=== PATIENT | male | born 1965 | race Caucasian/White ===

== ENCOUNTER 2021-12-13 10:01 | Inpatient (IN) | payer BC ==
[~2021-12-13] VITALS: Ht 177.8 cm; Wt 95.7 kg
[2021-12-13 10:05] VITALS: BP_SYST 126
--- NOTE | 2021-12-13 10:10 | NUR ---
BROUGHT IN BY S AMBULANCE, PLACED IN BED #7 AND TRIAGED. REPORT GIVEN TO AIDAN
--- NOTE | 2021-12-13 10:22 | NUR ---
PT BIBA, SLEEPING AND SNORING. NO SOB OR DISTRESS. PT IS NON VERBAL. PT BROUGHT IN TO ER FOR DISLODGED G-TUBE FROM HIS [facility]. PT DOES NOT SEEM TO BE IN PAIN. PT HAS HX OF CVA, AND NON VERBAL.
--- NOTE | 2021-12-13 10:26 | NUR ---
MD DR CUADRA AT BEDSIDE
--- NOTE | 2021-12-13 11:10 | NUR ---
ATTEMPTED X4 TO CALL [facility] FOR CLARIFICATION ON MED REC, MED REC ONLY PARTIALLY PRINTED. UNABLE TO GET THROUGH TO PHONE NUMBER [phone]
--- NOTE | 2021-12-13 11:26 | NUR ---
PT IN BED SLEEPING AND SNORING, NO DISCOMFORT. PT BPM IS BARRY AT 48 BPM. MD AWARE.
[2021-12-13 11:42] LABS: BASOPHILS % (AUTO) 0.5 % (0.0-2.0); EOSINOPHILS # (AUTO) 0.1 K/uL (0.0-0.4); EOSINOPHILS % (AUTO) 1.2 % (0.0-4.0); HEMATOCRIT 44.3 % (36-54); LYMPHOCYTES # (AUTO) 2.3 K/uL (1.0-5.5); LYMPHOCYTES % (AUTO) 25.6 % (20.5-51.5); MEAN CORPUSCULAR HEMOGLOBIN 33 pg (27-31); MEAN CORPUSCULAR HGB CONC 34 % (32-36); MEAN CORPUSCULAR VOLUME 98 fL (79.0-98.0); MONOCYTES # (AUTO) 0.8 K/uL (0.0-1.0); MONOCYTES % (AUTO) 9.3 % (1.7-9.3); NEUTROPHILS # (AUTO) 5.7 K/uL (1.8-7.7); NEUTROPHILS % (AUTO) 63.4 % (40.0-70.0); PLATELET COUNT (AUTO) 235 K/uL (130-430); RED BLOOD CELL COUNT(AUTO) 4.53 MIL/uL (4.2-6.2); RED CELL DISTRIBUTION WIDTH 13.8 % (9.0-15.0)
[2021-12-13 11:55] LABS: CALCIUM 9.3 mg/dL (8.4-11.0); CREATININE 0.79 mg/dL (0.55-1.30)
[2021-12-13 11:58] LABS: INR 1.1 (0.80-1.20); PROTHROMBIN TIME 11.3 SECS (9.5-12.5)
[2021-12-13 12:02] LABS: ALBUMIN 2.8 g/dL (3.4-4.8); C-REACTIVE PROTEIN QUANT 1.3 mg/dL (0-0.5); TOTAL BILIRUBIN 0.8 mg/dL (0.0-1.0)
--- NOTE | 2021-12-13 12:46 | NUR ---
Covid test sent to the lab
--- NOTE | 2021-12-13 13:39 | NUR ---
MARIE PURDY, PT PCP, HAS NOT PAGED BACK WITHIN [address] CUADRA, PAGE STUDENT NURSE HOSPITALIST FOR ADMISSION DUE TO DELAY OF CARE. PER FACESHEET: [facility] ppo-ppo DR. MONDRAGON IS STUDENT NURSE [phone]
--- NOTE | 2021-12-13 13:46 | NUR ---
Admit bed requested Patient will be admitted to care of . Admitted to M/S unit. Diagnosis G-TUBE MALFUNCTION Inpatient (Yes or No) YES Observation (Yes or No) NO Orientation concerns or request close to nursing station (Yes or No) NO Covid Status NEG On vent or bipap NO Isolation requirements NO Needs a sitter NO From Home (Yes or if No enter name of facility) NO-[facility] Requires Dialysis (Yes or No) NO Med Rec Completed (Yes of No) YES
[2021-12-13] MEDS ORDERED: ONDANSETRON HCL 4 MG/2 ML VIAL IVP PRN (14:15)
[2021-12-13] MEDS ORDERED: MUPIROCIN 2% TOPICAL OINTMENT 22 GM NS PRN (14:15)
[2021-12-13] MEDS ORDERED: DOCUSATE SODIUM 100 MG CAPSULE PO PRN (14:15)
[2021-12-13] MEDS ORDERED: MAGNESIUM SULFATE 50 ML IV PRN (14:15)
[2021-12-13] MEDS ORDERED: NALOXONE HCL 0.4 MG/ML AMP (NARCAN) IVP PRN ×2 (14:15)
[2021-12-13] MEDS ORDERED: ZOLPIDEM TARTRATE 5 MG TABLET PO PRN (14:15)
[2021-12-13] MEDS ORDERED: MORPHINE 2 MG/ML INJ. SYRINGE IVP PRN ×2 (14:15)
[2021-12-13] MEDS ORDERED: LORazepam 2 MG/ML VIAL IVP PRN (14:15)
[2021-12-13] MEDS ORDERED: ACETAMINOPHEN 325 MG TABLET PO PRN (14:15)
[2021-12-13] MEDS ORDERED: POTASSIUM CHLORIDE 20 MEQ TAB.PRT.SR PO PRN (14:15)
--- NOTE | 2021-12-13 15:45 | NUR ---
CONSULTATION PAGED/CALLED Reason for Consultation: [] GTUBE MALFUNCTION Person Who was Notified: [] KUSUM Consulting Physician: [] DR WARE Processing Inspector Specialty: [] GI Ordering Physician: [] DR MONDRAGON
--- NOTE | 2021-12-13 15:52 | NUR ---
Patient will be admitted to care of DR MONDRAGON . Admitted to MED SURGE unit. Will go to room 102B. Belongings list completed. Complete and up to date summary report printed. SBAR report to be given at bedside with opportunity for questions.
[2021-12-13 15:54] VITALS: BP_SYST 138
--- NOTE | 2021-12-13 15:58 | NUR ---
ADMISSION NOTES RECEIVED PT FROM [facility]. , PT WILL BE UNDER THE CARE OF DR MONDRAGON, PT DX IS MALFUNCTIONING G-TUBE. PT G-TUBE WAS OUT ALREADY AND INSERTION SITE HAS CLOSED ALREADY. DR WARE MADE AWARE . PT IS NON -VERBAL , DOES NOT OPEN EYES. DOES NOT FOLLOW VERBAL COMMANDS, REACTIVE TO PAIN ONLY.
--- NOTE | 2021-12-13 17:42 | NUR ---
[facility] ATTEMPTED TO CALL [facility] TO GET MEDICATION LIST FOR RECONCILIATION. WE HAVE ONLY RECEIVED A PARTIAL LIST WITHOUT FREQUENCY. PHONE CONTINUES TO BE BUSY.
[2021-12-13] MEDS: D5NS 500 ML IV SCH ×2 (18:00→20:00)
--- NOTE | 2021-12-13 18:35 | NUR ---
family note spoke with patients , updated on status, answered all questions, verbalized understanding. Stated she will becoming to visit him soon
--- NOTE | 2021-12-13 19:20 | NUR ---
CLOSING PROVIDED SBAR TO NIGHT NURSE, PATIENT IS IN BED WITH EYES CLOSE, RESPIRATIONS ARE EVEN , WITH 2L NASAL CANNULA, BED IN LOW AND LOCK ALAM BED ON, CALL LIGHT FIONA REACH Addendum: 12/13/21 at 1926 by Micaela Medina RN ENDORSE MRSA SCREENING TO NIGHT NURSE
[2021-12-13 20:50] VITALS: BP_SYST 138
--- NOTE | 2021-12-13 20:50 | NUR ---
Opening notes Pt's eyes open, non-verbal and does not follow commands. VSS. Pt's stepdaughter at bedside. IVF infusing L.AC 20G clear and patent. GT site closed, no redness, bleeding or drainage noted. Pt NPO, awaiting GI consult for GT placement. Call light within reach. BEd low, locked, siderails up x3, alarm on. To monitor.
--- NOTE | 2021-12-13 22:10 | NUR ---
MRSA nares collected and sent to lab.
[2021-12-13] MEDS ORDERED: BISA-79 PR (23:01)
[2021-12-13] MEDS ORDERED: ACET325T53 GT (23:01)
[2021-12-13] MEDS ORDERED: POLY17PO4 GT (23:01)
[2021-12-13] MEDS ORDERED: ESOM20CA38 GT (23:01)
[2021-12-13] MEDS ORDERED: LACT-96 GT (23:01)
[2021-12-13] MEDS ORDERED: SENN8.6T19 GT (23:01)
[2021-12-13] MEDS ORDERED: TICA90TA GT (23:01)
[2021-12-13] MEDS ORDERED: MOM GT (23:01)
[2021-12-13] MEDS ORDERED: DOCU-144 GT (23:01)
[2021-12-13] MEDS ORDERED: LOVI40 SQ (23:01)
[2021-12-14 00:47] VITALS: BP_SYST 110
[2021-12-14] MEDS: D5NS 500 ML IV SCH (02:15)
[2021-12-14] MEDS: D5NS 1,000 ML IV SCH (05:54)
--- NOTE | 2021-12-14 06:10 | NUR ---
Closing notes Pt asleep, no s/s distresss. IVF infusing at ordered rate L.AC 20G clear and patent. Pt maintained NPO, awaiting GI consult for GT placement. Call light within reach. Bed low, locked, siderails up x3, alarm on. To endorse to AM nurse. Addendum: 12/14/21 at 0705 by Yeni Rodríguez RN Called [facility] [phone] for medication recon (frequency), busy signal.
[2021-12-14] MEDS ORDERED: ATROPINE SULFATE 1 MG/10 ML SYRINGE IVP ONE ×2 (07:00→13:32)
[2021-12-14 08:00] VITALS: BP_SYST 117
[2021-12-14 11:20] VITALS: BP_SYST 113
[2021-12-14] MEDS ORDERED: MEPERIDINE 100 MG INJ. 100 MG/ML VIAL ONE (12:25)
[2021-12-14] MEDS ORDERED: MIDAZOLAM HCL 5 MG/5 ML VIAL ONE (12:26)
[2021-12-14 15:00] VITALS: BP_SYST 130
--- NOTE | 2021-12-14 15:46 | NUR ---
Discharge Planning: [facility] faxed pt referral to [facility] [phone] DCP to follow up Addendum: 12/14/21 at 1608 by Felicity Cuenca DP Patient can go back to [facility] [phone] [id number] pending auth from insurance. If auth comes DCP made Wendy aware to call nurse station [phone], transport is on Will Call with [facility] [phone] BLS. Addendum: 12/14/21 at 1611 by Felicity Cuenca DP Patient packet taken to nurse station.
--- NOTE | 2021-12-14 16:00 | NUR ---
REPORT RECEIVED FROM AUREA MARY. PT NON VERBAL, INCONTINENT OF BLADDER, ON IVF D5NS AT 80 ML PER HR, GTUBE CLAMPED WITH ABDOMINAL BINDER IN PLACE.
[2021-12-14 19:30] VITALS: BP_SYST 132
--- NOTE | 2021-12-14 19:30 | NUR ---
INITIAL NOTE AT INITIAL ASSESSMENT, PATIENT IS RESTING IN BED, STABLE, NO SIGNS OF RESPIRATORY DISTRESS. HE IS NONVERBAL AND WITHDRAWN. PLAN OF CARE FOR THE EVENING IS COMMUNICATED WITH THE PATIENT. PATIENT SHOWS NO PAIN PER FLACC SCALE USED. ABDOMINAL BINDER IS ON OVER HIS GTUBE, BLANKETS ARE POSITIONED SO THAT PATIENT CANNOT ACCIDENTALLY PULL OUT HIS GTUBE AGAIN. BED IS LOCKED, ALARMED, AND AT THE LOWEST LEVEL. FALL, SAFETY, RESPIRATORY, AND ASPIRATION PRECAUTIONS WILL BE TAKEN THROUGH THE SHIFT. PATIENT WILL BE TURNED [id number] DURING THE SHIFT.
--- NOTE | 2021-12-14 22:30 | NUR ---
HYGIENE CARE HYGIENE CARE PROVIDED AT THIS TIME, PATIENT TOLERATED WELL. FRESH LINENS PROVIDED.
[2021-12-15 01:12] VITALS: BP_SYST 119
--- NOTE | 2021-12-15 04:56 | NUR ---
HYGIENE CARE HYGIENE CARE PROVIDED AT THIS TIME, PATIENT TOLERATED WELL. FRESH LINENS PROVIDED.
[2021-12-15] MEDS: D5NS 1,000 ML IV SCH ×2 (06:10→12:14)
--- NOTE | 2021-12-15 07:34 | NUR ---
CLOSING NOTE PATIENT TOLERATED GTUBE FEEDING WELL DURING THE NIGHT, NO RESIDUAL NOTED. AT THIS TIME, SHE IS RESTING IN BED, STABLE, NO SIGNS OF RESPIRATORY DISTRESS. CALL LIGHT PLACED WITHIN REACH. BED IS LOCKED, ALARMED, AND AT THE LOWEST LEVEL. WILL CONTINUE TO MONITOR UNTIL REPORT IS GIVEN AT BEDSIDE TO AM NURSE.
[2021-12-15 08:00] VITALS: BP_SYST 148
--- NOTE | 2021-12-15 08:00 | NUR ---
Initial Notes Patient is Aox0. Nonambulatory. Resting with eyes closed. No s.s of distress noted. Breathing is even and nonlabored, on room air. Vital signs obtained, as documented. No facial grimace noted. No SOB noted. IVF running, IV patent. Gt feeding running. HOB elevated. Bed locked, at lowest position, and alarm on. Call light within reach.
[2021-12-15 09:12] LABS: ALBUMIN 2.6 g/dL (3.4-4.8); BILIRUBIN,DIRECT 0.3 mg/dL (0.0-0.3); TOTAL BILIRUBIN 0.7 mg/dL (0.0-1.0)
--- NOTE | 2021-12-15 11:00 | NUR ---
CM: s/w Germán Nguyen admission nurse; can't take pt back yet DT pending authorization from [employer] ins.
[2021-12-15 12:00] VITALS: BP_SYST 132
--- NOTE | 2021-12-15 12:29 | NUR ---
Notes Patient has been cleaned and repositioned. Patient is resting, eyes closed. No s/s of distress noted. Breathing is even and nonlabored, on room air. IVF running. IV patent. GT feeding on and HOB elevated. Safety precautions in place and call light within reach.
--- NOTE | 2021-12-15 16:30 | NUR ---
Notes Patient is resting, no s.s of distress noted. Breathing is even and nonlabored, on NC at 2.5 L O2. Spo2 at 95%. Denies SOB. Denies severe pain. Denies nausea. Does not request pain medication. Educated patient to call for assistance he wants to get up. Educated on fall prevention. Patient verbalized understanding. Bed locked, at lowest position, and alarm on. Call light within reach. Addendum: 12/15/21 at 1733 by Shireen Campa LVN wrong patient
--- NOTE | 2021-12-15 16:35 | NUR ---
Notes Patient is resting, eyes closed. No s.s of distress noted. Breathing is even and nonlabored. Patient has been repositioned. HOB elevated. GT feeding on. IVF running. Condom cath in place, Bag draining by gravity. at bedside. Safety precautions in place and call light within reach.
[2021-12-15 16:37] VITALS: BP_SYST 142
--- NOTE | 2021-12-15 18:46 | NUR ---
Closing Notes Patient is resting in bed. No s.s of distress noted. Breathing is even and nonlabored, on room air. HOB elevated. GT feeding on. Tolerating well. No facial grimace noted. condom cath in place. Bag draining by gravity. All needs met. Bed locked, alarm on, and at lowest position. Call light within reach. Will endorse care to oncoming nurse.
[2021-12-15 20:00] VITALS: BP_SYST 102
[2021-12-16 00:16] VITALS: BP_SYST 137
--- NOTE | 2021-12-16 02:30 | NUR ---
TRANSFER OF CARE RECEIVED REPORT FROM AUREA BOYCE FOR CONTINUITY OF CARE
[2021-12-16] MEDS: D5NS 1,000 ML IV SCH ×2 (03:15→19:13)
--- NOTE | 2021-12-16 06:41 | NUR ---
CLOSING NOTE PT IS RESTING IN BED, EYES CLOSED. NO S/S OF RESPIRATORY DISTRESS. BREATHING EVEN AND UNLABORED ON RA. CONDOM CATH IN PLACE DRAINING BY GRAVITY. GT INTACT WITH FEEDING RUNNING. IV SITE INTACT AND PATENT W/ FLUIDS RUNNING AT ORDERED RATE. ALL NEEDS MET. FALL AND SAFETY PRECAUTIONS IN PLACE WITH BED IN LOWEST POSITION, BED ALARM ON, AND CALL LIGHT WITHIN REACH
[2021-12-16 08:00] VITALS: BP_SYST 118
[2021-12-16 08:21] LABS: ALBUMIN 2.7 g/dL (3.4-4.8); BILIRUBIN,DIRECT 0.2 mg/dL (0.0-0.3); TOTAL BILIRUBIN 0.7 mg/dL (0.0-1.0)
[2021-12-16 12:49] VITALS: BP_SYST 120
[2021-12-16 16:00] VITALS: BP_SYST 119
--- NOTE | 2021-12-16 18:12 | NUR ---
Dietitian Recommendations * Consider adjust EN formula: Jevity 1.5 @ 60mL/hr + free water flushes per MD Provides daily: 2160 kcals, 92g PRO, 1094mL fluids Meets: 114% lower estimated kcal needs, 102% lower estimated PRO needs, 56% lower estimated fluid needs * MD to clarify free water flushes * Consider ST evaluation Please refer to nutrition assessment for details, thanks! CC, MPH, RDN
--- NOTE | 2021-12-16 19:30 | NUR ---
OPENING NOTE PT IS LYING IN BED, EYES CLOSED. NO S/S OF RESPIRATORY DISTRESS. BREATHING EVEN AND UNLABORED ON RA. GT INTACT WITH FEEDING RUNNING AT ORDERED RATE. FALL AND SAFETY PRECAUTIONS IN PLACE WITH BED IN LOWEST POSITION, BED ALARM ON, AND CALL LIGHT WITHIN REACH
[2021-12-16 20:00] VITALS: BP_SYST 127
--- NOTE | 2021-12-16 23:20 | NUR ---
GTUBE PT HAD PULLED OUT GTUBE. MINIMAL BLEEDING. INSERTED A 16F CATHETER TO THE SITE TO KEEP IT OPEN. PAGING GI - COLOR LABORATORY TECHNICIAN DR MUHAMMAD
--- NOTE | 2021-12-16 23:25 | NUR ---
PAGED PAGED DOCTOR WARE
--- NOTE | 2021-12-16 23:45 | NUR ---
PAGED SECOND PAGED FOR GI.
--- NOTE | 2021-12-17 00:54 | NUR ---
SPOKE W/ DR MUHAMMAD INFORMED HIM OF PT PULLING OUT GTUBE. STATED TO LEAVE THE MCGRAW IN THE SITE AND HE WILL ASSESS IN THE MORNING
[2021-12-17 01:09] VITALS: BP_SYST 142
[2021-12-17] MEDS: D5NS 1,000 ML IV SCH ×2 (05:42→17:22)
--- NOTE | 2021-12-17 06:19 | NUR ---
JAILENE KOEHLER RN FROM GI REINSERTED MCGRAW CATHETER W/ YARI VALVE ATTACHED INTO THE GTUBE SITE
--- NOTE | 2021-12-17 06:52 | NUR ---
CLOSING NOTE PT IS LYING IN BED, EYES CLOSED. NO S/S OF RESPIRATORY DISTRESS. BREATHING EVEN AND UNLABORED ON RA. MCGRAW CATHETER INSIDE THE GTUBE SITE INTACT. IV SITE INTACT WITH FLUIDS RUNNING AT ORDERED RATE. ALL NEEDS MET THROUGHOUT SHIFT. FALL AND SAFETY PRECAUTIONS IN PLACE WITH BED IN LOWEST POSITION, BED ALARM ON, AND CALL LIGHT WITHIN REACH
--- NOTE | 2021-12-17 07:33 | NUR ---
OPENING NOTE RECEIVED REPORT FROM PM FLAME DEGREASER NURSE, PATIENT RESTING IN BED NO IV PER FLAME DEGREASER PATIENT PULL OUT G-TUBE AND IV, NO DISTRESS CALL LIGHT IN REACH BED AT LOW POSITION. WILL CONT TO MONITOR PATIENT A PER ORDERS
[2021-12-17 08:04] VITALS: BP_SYST 146
--- NOTE | 2021-12-17 09:17 | NUR ---
IV RE-INSERTION: Restarted on 12/17/21 @0914. Successful after 1 attempts. Resumed current IVF of D5NS and regulated @ 80CC per hour. Will observe for any signs of infiltration.
[2021-12-17 11:25] VITALS: BP_SYST 141
--- NOTE | 2021-12-17 12:30 | NUR ---
ROUNDS PATIENT REMAINS STABLE NO DISTRESS FAMILY AT BEDSIDE, BED AT LOW POSITION, CALL LIGHT IN REACH SAFTY CHECK ALL DONE, WILL CONT TO MONITOR PATIENT
--- NOTE | 2021-12-17 13:59 | NUR ---
XRAY AT BEDSIDE G-TUBE PLACEMENT
--- NOTE | 2021-12-17 14:30 | NUR ---
Discharge Planning: [facility] arranged transport with [facility] [phone] BLS btw 4:30pm and 5:00pm to [facility] [phone] Rm [id number]. [facility] made nurse aware patient packet at nurse station. Addendum: 12/17/21 at 1440 by Felicity Cuenca DP Disposition 03
[2021-12-17] MEDS ORDERED: DIATR MEGLU/DIATRIZ SOD 30 ML SOLUTION PO ONE ×2 (14:58→15:01)
[2021-12-17 15:30] VITALS: BP_SYST 124
--- NOTE | 2021-12-17 16:10 | NUR ---
SPOKE WITH HUMBERTO , INFORMED HER OF TRANSFER TO [facility] GOING TO ROOM 142
--- NOTE | 2021-12-17 16:25 | NUR ---
XRAY UGI PLACEMENT CONFIRMATION OF G-TUBE WITH IN THE GASTRIC LUMEN, WILL PAGE DR MONDRAGON FOR D/C ORDERS.
--- NOTE | 2021-12-17 16:29 | NUR ---
NINO TO D/C BACK TO [facility] PER DR. MONDRAGON
--- NOTE | 2021-12-17 18:06 | NUR ---
[facility] 1 AT BEDSIDE TO TRANSFER PATIENT, NO DISTRESS PATIENT SLEEPING IV TO STAY IN. TELE MONITOR REMOVED WILL CALL TO INFORM
--- NOTE | 2021-12-18 08:16 | NUR ---
Dispo code 06
== END 2021-12-17 22:40 | DRG 394 ==
LOC: SED 10:01 → SMU 13:41 → STU 15:50
PROVIDERS: ADMIT General Practice; ATTEND General Practice
PROC: 0DH63UZ Insertion of Feeding Device into Stomach, Percutaneous Approach (ICD-10-PCS; principal; 2021-12-14 14:15)
DX: K94.23 Gastrostomy malfunction (principal); E44.0 Moderate protein-calorie malnutrition; K21.9 Gastro-esophageal reflux disease without esophagitis; R13.10 Dysphagia, unspecified; Z20.822 Contact with and (suspected) exposure to COVID-19; Z74.01 Bed confinement status; Z86.73 Personal history of transient ischemic attack (TIA), and cerebral infarction without residual deficits; Z91.011 Allergy to milk products; Z88.0 Allergy status to penicillin; Z91.018 Allergy to other foods; Z79.899 Other long term (current) drug therapy; Z63.4 Disappearance and death of family member; Z68.30 Body mass index [BMI] 30.0-30.9, adult
CPT/HCPCS: 36415; 43246; 74240-TC; 76700-TC; 80053; 80076; 83605; 85025; 85610-TC; 85730-TC; 86140; 87081; 99285; G0378; J0461; J2175; J2250; J7030; J7042; J7060; Q9964